=== PATIENT | male | born 1995 | race African-American/Black ===

== ENCOUNTER 2022-09-25 23:29 | Emergency (ER) | payer MEDICAID ==
[~2022-09-25] VITALS: Ht 190.5 cm; Wt 109.0 kg
[2022-09-25 23:48] VITALS: BP 134/57
[2022-09-26] MEDS ORDERED: TETANUS, DIPHTHERIA, PERTUSSIS VAC/PF 0.5ML (>10YR OLD) IM ONE (01:45)
[2022-09-26] MEDS ORDERED: BACITRACIN ZINC OINT UDPKT TOP ONE (01:45)
[2022-09-26] MEDS ORDERED: LIDOCAINE HCL/PF 1% 10 MG/ML 5ML VIAL INFIL ONE (01:45)
== END 2022-09-26 03:37 | disposition home or self-care (01) ==
LOC: ER 23:29
DX: S01.01XA Laceration without foreign body of scalp, initial encounter (principal); X58.XXXA Exposure to other specified factors, initial encounter; Y93.89 Activity, other specified; Y92.89 Other specified places as the place of occurrence of the external cause; Y99.8 Other external cause status
CPT/HCPCS: 12001; 90471; 90715; 99283; Z7610

== ENCOUNTER 2025-02-06 10:58 | Emergency (ER) | payer SELFPAY ==
[~2025-02-06] VITALS: Ht 190.5 cm; Wt 109.0 kg
[2025-02-06 11:20] VITALS: O2SAT 97
[2025-02-06] MEDS: IBUPROFEN 400MG TABLET PO ONE (12:50)
[2025-02-06] MEDS: LIDOCAINE 5% PATCH TOP SCH (12:50)
[2025-02-06] MEDS ORDERED: LIDO-53 TP (12:54)
[2025-02-06] MEDS ORDERED: NAPR-681 MT (12:55)
[2025-02-06 13:00] VITALS: BP 142/66; PULSE 84; RESP 14; TEMP 36.7; O2SAT 99
== END 2025-02-06 12:13 | disposition home or self-care (01) ==
LOC: ER 10:58
DX: M54.50 Low back pain, unspecified (principal); I10 Essential (primary) hypertension; Z79.1 Long term (current) use of non-steroidal anti-inflammatories (NSAID)
CPT/HCPCS: 72100; 99283